=== PATIENT | female | born 1970 | race Caucasian/White ===

== ENCOUNTER → 2016-06-04 | Outpatient (REF) | payer OTHER ==
[~2016-06-04] MED LIST: ALPRPOW4 PO; B 12 PO; CALCIUM PLUS D PO; FLUOXETINE PO; LAMICTAL PO; MULTLIQ7 PO; VENTAER IN; VENTAER INH; VICO5TAB PO
== END ==
LOC: M LAB REF 17:10
PROVIDERS: ATTEND Obstetrics & Gynecology
DX: R10.2 Pelvic and perineal pain (principal)

== ENCOUNTER → 2018-06-12 | Outpatient (REF) | payer OTHER | LOC: M SFHCPLAZ 13:41 | PROVIDERS: ATTEND Dermatology | DX: D48.3 Neoplasm of uncertain behavior of retroperitoneum (principal) ==

== ENCOUNTER → 2018-08-31 | Outpatient (REF) | payer OTHER | LOC: M SFHCPLAZ 17:07 | PROVIDERS: ATTEND Dermatology | DX: D22.9 Melanocytic nevi, unspecified (principal) ==

== ENCOUNTER → 2019-02-19 | Outpatient (REF) | payer OTHER ==
[2019-02-19 16:42] LABS: BASO # 0.1 10^3/uL (0.0-0.2); BASO % 0.8 % (0.0-1.0); EOS # 0.5 10^3/uL (0.0-0.5); EOS % 8.8 % (0.0-3.0); HEMATOCRIT 41.9 % (36.0-47.0); HEMOGLOBIN 13.5 g/dl (12.0-15.5); LYMPH # 1.6 10^3/uL (1.5-5.0); MEAN CORPUSCULAR HEMOGLOBIN 32.1 pg (27.0-33.0); MEAN CORPUSCULAR HGB CONC 32.2 g/dl (32.0-36.5); MEAN CORPUSCULAR VOLUME 99.5 fl (80.0-96.0); MONO # 0.4 10^3/uL (0.0-0.8); MONO % 7.3 % (0.0-5.0); NEUTROPHILS # 3.3 10^3/uL (1.5-8.5); NEUTROPHILS % 55.8 % (36.0-66.0); PLATELET COUNT, AUTOMATED 343 10^3/uL (150-450); RED BLOOD COUNT 4.21 10^6/uL (4.00-5.40); WHITE BLOOD COUNT 5.9 10^3/uL (4.0-10.0)
[2019-02-19 16:53] LABS: THYROID STIMULATING HORMONE 2.88 uIU/ML (0.358-3.740); THYROXINE (T4) 7.8 UG/DL (4.5-12.0)
[2019-02-19 16:55] LABS: TOTAL T3 76.7 NG/DL (60.0-181.0)
== END ==
LOC: M SFHCCLAY 09:52
PROVIDERS: ATTEND Family Medicine
DX: E03.9 Hypothyroidism, unspecified (principal); F32.9 Major depressive disorder, single episode, unspecified; R00.2 Palpitations

== ENCOUNTER → 2019-12-25 | Outpatient (REF) | payer OTHER ==
[2019-12-25 16:03] LABS: BASO % 0.5 % (0.0-1.0); EOS # 0.2 10^3/uL (0.0-0.5); EOS % 3.5 % (0.0-3.0); HEMATOCRIT 40.8 % (36.0-47.0); LYMPH % 33.8 % (24.0-44.0); MEAN CORPUSCULAR HEMOGLOBIN 31.5 pg (27.0-33.0); MEAN CORPUSCULAR HGB CONC 31.9 g/dl (32.0-36.5); MEAN CORPUSCULAR VOLUME 98.8 fl (80.0-96.0); MONO # 0.5 10^3/uL (0.0-0.8); MONO % 7.6 % (0.0-5.0); NEUTROPHILS # 3.2 10^3/uL (1.5-8.5); NEUTROPHILS % 54.4 % (36.0-66.0); PLATELET COUNT, AUTOMATED 324 10^3/uL (150-450); RED BLOOD COUNT 4.13 10^6/uL (4.00-5.40)
[2019-12-25 16:17] LABS: ALBUMIN 4.1 GM/DL (3.2-5.2); ALT/SGPT 22 U/L (12-78); BILIRUBIN,TOTAL 0.3 MG/DL (0.2-1.0); BLOOD UREA NITROGEN 22 MG/DL (7-18); CARBON DIOXIDE LEVEL 26 MEQ/L (21-32); CHLORIDE LEVEL 110 MEQ/L (98-107); CREATININE FOR GFR 1.02 MG/DL (0.55-1.30); FREE T4 0.95 NG/DL (0.76-1.46); GLOMERULAR FILTRATION RATE > 60.0 (>58); GLUCOSE, FASTING 84 MG/DL (70-100); POTASSIUM SERUM 4.1 MEQ/L (3.5-5.1); RHEUMATOID FACTOR QUANT < 10.0 IU/ML (<15.0); SODIUM LEVEL 140 MEQ/L (136-145); TOTAL PROTEIN 7.4 GM/DL (6.4-8.2); TOTAL T3 75.4 NG/DL (60.0-181.0)
[2019-12-25 16:34] LABS: ERYTHROCYTE SEDIMENTATION RATE 6 mm/hr (0-20)
[2019-12-28 14:08] LABS: ANA (HEP2) Negative (.); CYCLIC CITRULLINATED PEPTIDE 5 units (0-19); Lyme Disease IgG/IgM Antibodie <0.91 ISR (0.00-0.90); Lyme Disease IgM Ab Quantitati <0.80 index (0.00-0.79); VITAMIN D 1,25 DIHYDROXY 38.5 pg/mL (19.9-79.3)
== END ==
LOC: M SFHCCLAY 10:48
PROVIDERS: ATTEND Family Medicine
DX: M25.59 Pain in other specified joint (principal); M79.10 Myalgia, unspecified site; E03.9 Hypothyroidism, unspecified; E55.9 Vitamin D deficiency, unspecified

== ENCOUNTER → 2020-02-25 | Outpatient (CLI) | payer OTHER ==
--- NOTE | 2020-02-26 10:02 | REP ---
INDICATION: M79.605 LEFT LEG PAIN COMPARISON: None. TECHNIQUE: AP, lateral views of the left tibia/fibula FINDINGS: Moderate arthritic changes at the knee noted. No acute fracture or dislocation. Surrounding soft tissues relatively normal and without subcutaneous emphysema or foreign body. IMPRESSION: Moderate degenerative changes at the knee.. No acute fracture or dislocation. <Electronically signed by Curtis Del Real > 02/26/20 [id number]
== END ==
LOC: M CLY 15:09
PROVIDERS: ATTEND Family Medicine
DX: M79.605 Pain in left leg (principal); M17.12 Unilateral primary osteoarthritis, left knee

== ENCOUNTER → 2020-03-11 | Outpatient (CLI) | payer SELFPAY | LOC: M LABSMTC 10:52 | PROVIDERS: ATTEND Pediatrics | DX: Z20.822 Contact with and (suspected) exposure to COVID-19 (principal) ==

== ENCOUNTER → 2020-04-25 | Outpatient (CLI) | payer OTHER ==
[~2020-04-25] MED LIST changes: +PROHANCE 279.3MG/ML 15ML VIAL As Ordered ONE
--- NOTE | 2020-04-28 08:33 | REP ---
INDICATION: PAIN IN LOWER LEFT LEG. Leg pain from the knee to the ankle. Rule out fracture. COMPARISON: Comparison radiographs are from February 25, 2020.. TECHNIQUE: Axial, coronal, and sagittal imaging planes utilized. T1 and T2 weighted scans are included with without fat saturation in the usual fashion. Gadolinium enhancement dose is 15 mL of intravenous ProHance. FINDINGS: There is moderate osteoarthritic spurring at the lateral and to a slightly lesser extent medial compartment of the tibiofemoral joint. There is a small Allan's cyst. Cortical and medullary bone signal intensity are normal in the tibia and fibula except for a tiny subcortical cyst in the medial tibial plateau. There is no evidence of occult fracture or bony destructive lesion. Myofascial interfaces are unremarkable. No vascular abnormality is seen. No abnormal signal intensity is observed in the skeletal muscle on T1 and T2 weighted scans. No evidence of lesion in the subcutaneous fat layer. Imaging obtained post contrast shows no abnormal contrast enhancement. IMPRESSION: Moderate osteoarthritis at the knee with Allan's cyst. Otherwise negative MRI study of the left calf <Electronically signed by Carlos George > 04/28/20 [id number]
== END ==
LOC: M RAD 17:21
PROVIDERS: ATTEND Orthopaedic Surgery
DX: M17.12 Unilateral primary osteoarthritis, left knee (principal); M71.22 Synovial cyst of popliteal space [Baker], left knee
CPT/HCPCS: 73720; A9576

== ENCOUNTER → 2020-06-10 | Outpatient (CLI) | payer OTHER ==
[~2020-06-10] MED LIST changes: -PROHANCE 279.3MG/ML 15ML VIAL As Ordered ONE
--- NOTE | 2020-06-11 08:06 | REP ---
INDICATION: LOW BACK PAIN. COMPARISON: None. TECHNIQUE: Sagittal and axial T1 and T2-weighted scans are acquired in the usual fashion with and without fat saturation. Sequences include spin echo, turbo spin-echo, and STIR imaging sequences. FINDINGS: Lumbar vertebral body heights are preserved and alignment is normal. There is diffuse degenerative disc disease at each lumbar level with relative sparing at L5-S1. Perineural cysts are noted in the lower sacrum incidentally. The tip of the conus medullaris is normal in position and appearance at the T12-L1 disc level. No extra vertebral abnormality is observed. Axial and sagittal images taken at L1-L2 demonstrate a broad-based right posterior and right foraminal focal disc protrusion indenting the right ventral margin of the thecal sac. There is some discogenic spurring associated with this mild in degree. There is mild narrowing of the inferior aspect of the right foramen at L1-2 without nerve root displacement or compression visible. At L2-3, there is diffuse disc bulging indenting the ventral margin of the thecal sac. Degenerative narrowing of the disc is seen. No spinal stenosis is seen. Mild ligamentum flavum hypertrophy is present. No neural foraminal encroachment is appreciated. At L3-4, there is a left posterior and left foraminal disc protrusion indenting the ventral margin of the thecal sac and narrowing the inferior aspect of the left foramen. There is associated spurring. Thecal sac has a triangular configuration is borderline in overall size. There is mild facet and ligamentum flavum hypertrophy. At L4-5, there is degenerative narrowing and decreased signal intensity in the disc. There is diffuse disc bulging. Mild central canal stenosis is seen due to diffuse disc bulging in combination with ligamentum for the flavum and facet hypertrophy. The midline AP dimension of the thecal sac at the L4-5 level is 11 mm. There is mild bilateral neural foraminal narrowing due to discogenic spurring and disc bulging in combination with facet hypertrophy. This is a little more prominent on the left. At L5-S1, there is bilateral facet hypertrophy. Minimal central disc bulging is seen. No foraminal stenosis or central canal stenosis. IMPRESSION: Degenerative spondylosis changes. Left posterior and foraminal disc protrusion at L3-4, right posterior and foraminal disc protrusion at L1-2. Central canal stenosis at L4-5 mild in degree. <Electronically signed by Carlos George > 06/11/20 [id number]
== END ==
LOC: M RAD 16:28
PROVIDERS: ATTEND Orthopaedic Surgery
DX: M54.5 Low back pain (principal)

== ENCOUNTER → 2020-07-24 | Outpatient (REF) | payer OTHER ==
[2020-07-25 13:07] LABS: FREE T4 1.06 NG/DL (0.76-1.46); THYROID STIMULATING HORMONE 1.25 uIU/ML (0.358-3.740)
== END ==
LOC: M SFHCCLAY 15:06
PROVIDERS: ATTEND Family Medicine
DX: E03.9 Hypothyroidism, unspecified (principal)

== ENCOUNTER → 2021-07-23 | Outpatient (REF) | payer OTHER ==
[2021-07-23 12:07] LABS: ALBUMIN 4.2 GM/DL (3.2-5.2); BILIRUBIN,TOTAL 0.5 MG/DL (0.2-1.0); CALCIUM LEVEL 10.2 MG/DL (8.5-10.1); CHOLESTEROL RISK RATIO 1.951 (<5); CREATININE FOR GFR 1.06 MG/DL (0.55-1.30); FREE T4 1.12 NG/DL (0.76-1.46); GLOMERULAR FILTRATION RATE 58.4 (>51); POTASSIUM SERUM 3.6 MEQ/L (3.5-5.1); THYROID STIMULATING HORMONE 2.12 uIU/ML (0.358-3.740); TOTAL PROTEIN 7.1 GM/DL (6.4-8.2); TOTAL T3 93.1 NG/DL (60.0-181.0)
== END ==
LOC: M SFHCCLAY 08:25
PROVIDERS: ATTEND Family Medicine
DX: E78.2 Mixed hyperlipidemia (principal); E55.9 Vitamin D deficiency, unspecified; E03.9 Hypothyroidism, unspecified

== ENCOUNTER → 2022-03-04 | Outpatient (REF) | payer OTHER | LOC: M SFHCDERM 14:12 | PROVIDERS: ATTEND Nurse Practitioner Family | DX: L57.0 Actinic keratosis (principal) ==

== ENCOUNTER → 2022-03-18 | Outpatient (CLI) | payer OTHER | LOC: M CLY 14:39 | PROVIDERS: ATTEND Family Medicine | DX: K59.03 Drug induced constipation (principal) ==

== ENCOUNTER → 2022-06-11 | Outpatient (REF) | payer OTHER ==
[2022-06-11 17:56] LABS: HEMATOCRIT 44.3 % (36.0-47.0); HEMOGLOBIN 14.2 g/dl (12.0-15.5); MEAN CORPUSCULAR HEMOGLOBIN 32.5 pg (27.0-33.0); MEAN CORPUSCULAR HGB CONC 32.1 g/dl (32.0-36.5); MEAN CORPUSCULAR VOLUME 101.4 fl (80.0-96.0); PLATELET COUNT, AUTOMATED 324 10^3/uL (150-450); RED BLOOD COUNT 4.37 10^6/uL (4.00-5.40); WHITE BLOOD COUNT 8.4 10^3/uL (4.0-10.0)
[2022-06-11 18:12] LABS: ALBUMIN 4.3 G/DL (3.2-5.2); ALKALINE PHOSPHATASE 27 U/L (46-116); ALT/SGPT 20 U/L (7.0-40); AST/SGOT 20 U/L (<34); BILIRUBIN,TOTAL 0.4 MG/DL (0.3-1.2); BLOOD UREA NITROGEN 20 MG/DL (9-23); CALCIUM LEVEL 9.7 MG/DL (8.5-10.1); CARBON DIOXIDE LEVEL 27 MMOL/L (20-31); CHLORIDE LEVEL 105 MMOL/L (98-107); CHOLESTEROL LEVEL 190 MG/DL (<200); CHOLESTEROL RISK RATIO 2.03 (<5); CREATININE FOR GFR 1.03 MG/DL (0.55-1.30); GLOMERULAR FILTRATION RATE > 60.0 (>51); GLUCOSE, FASTING 81 MG/DL (60-100); HDL CHOLESTEROL 93.5 MG/DL (>40); IRON (FE) 92 UG/DL (50-170); LDL CHOLESTEROL 83.7 MG/DL (<100); MAGNESIUM LEVEL 2.3 MG/DL (1.8-2.4); NON-HDL-C 96.5 MG/DL; POTASSIUM SERUM 4.1 MMOL/L (3.5-5.1); SODIUM LEVEL 139 MMOL/L (136-145); TOTAL PROTEIN 7.4 G/DL (5.7-8.2); TRIGLYCERIDES LEVEL 64 MG/DL (<150)
[2022-06-11 18:13] LABS: FREE T4 1.13 NG/DL (0.89-1.76)
[2022-06-11 18:14] LABS: THYROID STIMULATING HORMONE 1.056 uIU/ML (0.55-4.78); TOTAL T3 86.1 NG/DL (60.0-181.0)
== END ==
LOC: M SFHCCLAY 13:58
PROVIDERS: ATTEND Family Medicine
DX: E03.9 Hypothyroidism, unspecified (principal); E66.9 Obesity, unspecified; R00.2 Palpitations; E78.2 Mixed hyperlipidemia; E55.9 Vitamin D deficiency, unspecified; G25.81 Restless legs syndrome

== ENCOUNTER → 2023-04-22 | Outpatient (REF) | payer OTHER ==
[2023-04-22 18:20] LABS: ALBUMIN 4.2 G/DL (3.2-5.2); ALKALINE PHOSPHATASE 27 U/L (46-116); ALT/SGPT 29 U/L (7.0-40); AST/SGOT 18 U/L (<34); BILIRUBIN,TOTAL 0.4 MG/DL (0.3-1.2); BLOOD UREA NITROGEN 17 MG/DL (9-23); CALCIUM LEVEL 9.3 MG/DL (8.5-10.1); CARBON DIOXIDE LEVEL 27 MMOL/L (20-31); CHLORIDE LEVEL 106 MMOL/L (98-107); CHOLESTEROL LEVEL 187 MG/DL (<200); CHOLESTEROL RISK RATIO 1.79 (<5); GLOMERULAR FILTRATION RATE > 60.0 (>51); GLUCOSE, FASTING 80 MG/DL (60-100); HDL CHOLESTEROL 104.4 MG/DL (>40); NON-HDL-C 82.6 MG/DL; POTASSIUM SERUM 4.5 MMOL/L (3.5-5.1); SODIUM LEVEL 138 MMOL/L (136-145); TOTAL PROTEIN 7.2 G/DL (5.7-8.2); TRIGLYCERIDES LEVEL 133 MG/DL (<150)
[2023-04-22 18:21] LABS: FREE T4 1.05 NG/DL (0.89-1.76)
[2023-04-22 18:22] LABS: THYROID STIMULATING HORMONE 1.849 uIU/ML (0.55-4.78)
== END ==
LOC: M SFHCCLAY 11:18
PROVIDERS: ATTEND Family Medicine
DX: E03.9 Hypothyroidism, unspecified (principal); E78.2 Mixed hyperlipidemia

== ENCOUNTER → 2023-10-19 | Outpatient (CLI) | payer OTHER | LOC: M PLAIMG 15:20 | PROVIDERS: ATTEND Pain Medicine Pain Medicine | DX: M51.26 Other intervertebral disc displacement, lumbar region (principal); M47.896 Other spondylosis, lumbar region ==

== ENCOUNTER → 2024-01-27 | Outpatient (REF) | payer OTHER ==
[2024-01-27 12:27] LABS: ALBUMIN 3.9 G/DL (3.2-5.2); ALKALINE PHOSPHATASE 27 U/L (35-104); ALT/SGPT 27 U/L (7.0-40); AST/SGOT 19 U/L (<34); BILIRUBIN,TOTAL 0.3 MG/DL (0.3-1.2); BLOOD UREA NITROGEN 25 MG/DL (9-23); CALCIUM LEVEL 9.6 MG/DL (8.5-10.1); CARBON DIOXIDE LEVEL 27 MMOL/L (20-31); CHLORIDE LEVEL 109 MMOL/L (98-107); CREATININE FOR GFR 0.92 MG/DL (0.55-1.30); GLOMERULAR FILTRATION RATE > 60.0 (>51); GLUCOSE, FASTING 73 MG/DL (60-100); POTASSIUM SERUM 4.4 MMOL/L (3.5-5.1); SODIUM LEVEL 144 MMOL/L (136-145)
[2024-01-27 12:28] LABS: FREE T4 1.11 NG/DL (0.89-1.76)
[2024-01-27 12:29] LABS: THYROID STIMULATING HORMONE 2.154 uIU/ML (0.55-4.78)
== END ==
LOC: M SFHCCLAY 09:38
PROVIDERS: ATTEND Family Medicine
DX: E03.9 Hypothyroidism, unspecified (principal)

== ENCOUNTER → 2024-09-14 | Outpatient (REF) | payer OTHER ==
[2024-09-14 13:59] LABS: ALT/SGPT 24.0 U/L (7.0-40); AST/SGOT 19.0 U/L (<34); CALCIUM LEVEL 9.2 MG/DL (8.5-10.1); CARBON DIOXIDE LEVEL 24.0 MMOL/L (20-31); CHLORIDE LEVEL 108.0 MMOL/L (98-107); CHOLESTEROL LEVEL 195.0 MG/DL (<200); CHOLESTEROL RISK RATIO 2.3 (<5); CREATININE FOR GFR 1.04 MG/DL (0.55-1.30); FREE T4 1.22 NG/DL (0.89-1.76); GLOMERULAR FILTRATION RATE 64.3 (>51); LDL CHOLESTEROL 99.7 MG/DL (<100); NON-HDL-C 110.3 MG/DL; POTASSIUM SERUM 4.5 MMOL/L (3.5-5.1); SODIUM LEVEL 144.0 MMOL/L (136-145); TRIGLYCERIDES LEVEL 53.0 MG/DL (<150)
== END ==
LOC: M SFHCCLAY 09:44
PROVIDERS: ATTEND Family Medicine
DX: E03.9 Hypothyroidism, unspecified (principal); E78.2 Mixed hyperlipidemia

== ENCOUNTER → 2025-01-11 | Outpatient (CLI) | payer OTHER | LOC: M CLY 15:43 | PROVIDERS: ATTEND Family Medicine | DX: Z53.9 Procedure and treatment not carried out, unspecified reason (principal) ==

== ENCOUNTER → 2025-01-15 | Outpatient (CLI) | payer OTHER | LOC: M CLY 15:41 | PROVIDERS: ATTEND Family Medicine | DX: M25.552 Pain in left hip (principal); M25.752 Osteophyte, left hip ==